=== PATIENT | female | born 1990 | race Caucasian/White ===

== ENCOUNTER → 2018-09-12 | Outpatient (REF) | payer OTHER | LOC: M LAB REF 17:25 | PROVIDERS: ATTEND Family Medicine | DX: Z01.419 Encounter for gynecological examination (general) (routine) without abnormal findings (principal) | CPT/HCPCS: 87624; G0123 ==

== ENCOUNTER 2019-04-28 14:50 | Emergency (ER) | payer OTHER ==
[~2019-04-28] VITALS: Ht 175.3 cm; Wt 102.3 kg
--- NOTE | 2019-04-28 17:02 | REP ---
FIRST TRIMESTER ULTRASOUND: Real-time sonographic evaluation of the gravid uterus performed utilizing transabdominal technique. There is a single living intrauterine gestation. The estimated gestational age is 6 weeks 4 days based on crown rump length of 7 mm, EDC 12/18/2019. heart rate 131 beats per minute. Subchorionic hemorrhage is seen 14 x 8 x 15 mm. There is a left corpus luteum 2.1 x 1.3 x 1.3 cm. Electronically Signed by Helio Lebron MD 05/01/2019 04:28 P
[2019-04-28 17:21] VITALS: BP 126/86
== END 2019-04-28 17:27 | disposition home or self-care (01) ==
LOC: M ED 14:50
DX: O20.8 Other hemorrhage in early pregnancy (principal); Z3A.01 Less than 8 weeks gestation of pregnancy; Z88.0 Allergy status to penicillin

== ENCOUNTER → 2019-04-28 | Outpatient (REF) | payer OTHER ==
[2019-04-28 14:13] LABS: AMORPHOUS SEDIMENT MODERATE (NEGATIVE); APPEARANCE, URINE CLOUDY (CLEAR); BACTERIA, URINE AUTO NEGATIVE (NEGATIVE); BILIRUBIN, URINE AUTO NEGATIVE (NEGATIVE); BLOOD, URINE BLOOD NEGATIVE (NEGATIVE); COLOR, URINE YELLOW (YELLOW); GLUCOSE, URINE (UA) AUTO NEGATIVE (NEGATIVE); KETONE, URINE AUTO NEGATIVE (NEGATIVE); LEUKOCYTE ESTERASE, URINE AUTO NEGATIVE (NEGATIVE); NITRITE, URINE AUTO NEGATIVE (NEGATIVE); PROTEIN, URINE AUTO NEGATIVE (NEGATIVE); RBC, URINE AUTO 0 /HPF (0-3); SPECIFIC GRAVITY URINE AUTO 1.016 (1.002-1.035); SQUAMOUS EPITHELIAL CELL UR AU 0 /HPF (0-6); UROBILINOGEN, URINE AUTO 0.2 mg/dL (0.0-2.0); WBC, URINE AUTO 0 /HPF (0-3)
[2019-04-28 16:01] LABS: CHLAMYDIA DNA AMPLIFICATION NEGATIVE (NEGATIVE); GC DNA AMPLIFICATION NEGATIVE (NEGATIVE)
== END ==
LOC: M LAB REF 12:42
PROVIDERS: ATTEND Family Medicine
DX: N39.0 Urinary tract infection, site not specified (principal)

== ENCOUNTER → 2019-04-28 | Outpatient (CLI) | payer OTHER | LOC: M LAB 10:32 | PROVIDERS: ATTEND Family Medicine | DX: O20.0 Threatened abortion (principal); Z3A.00 Weeks of gestation of pregnancy not specified ==

== ENCOUNTER → 2019-05-01 | Outpatient (CLI) | payer OTHER | LOC: M LAB 14:23 | PROVIDERS: ATTEND Family Medicine | DX: Z01.419 Encounter for gynecological examination (general) (routine) without abnormal findings (principal) ==

== ENCOUNTER → 2019-05-09 | Outpatient (CLI) | payer OTHER ==
[2019-05-09 16:08] LABS: BASO % 0.1 % (0.0-1.0); EOS # 0.1 10^3/uL (0.0-0.5); EOS % 1.1 % (0.0-3.0); HEMOGLOBIN 12.9 g/dl (12.0-15.5); LYMPH # 1.9 10^3/uL (1.5-5.0); LYMPH % 18.9 % (24.0-44.0); MEAN CORPUSCULAR HEMOGLOBIN 30.4 pg (27.0-33.0); MEAN CORPUSCULAR HGB CONC 33.9 g/dl (32.0-36.5); MEAN CORPUSCULAR VOLUME 89.6 fl (80.0-96.0); MONO # 0.7 10^3/uL (0.0-0.8); MONO % 6.6 % (0.0-5.0); NEUTROPHILS # 7.5 10^3/uL (1.5-8.5); PLATELET COUNT, AUTOMATED 212 10^3/uL (150-450); RED BLOOD COUNT 4.24 10^6/uL (4.00-5.40); WHITE BLOOD COUNT 10.3 10^3/uL (4.0-10.0)
[2019-05-09 17:40] LABS: CHLAMYDIA DNA AMPLIFICATION NEGATIVE (NEGATIVE); GC DNA AMPLIFICATION NEGATIVE (NEGATIVE)
[2019-05-10 09:08] LABS: HEPATITIS C VIRUS ABY INDEX 0.1 INDEX (<0.8); HIV 1&2 SCREEN CENTAUR NEGATIVE (NEGATIVE); RUBELLA IgG QUALITATIVE IMMUNE (IMMUNE)
== END ==
LOC: M LAB 15:23
PROVIDERS: ATTEND Obstetrics & Gynecology
DX: Z34.81 Encounter for supervision of other normal pregnancy, first trimester (principal); Z3A.00 Weeks of gestation of pregnancy not specified

== ENCOUNTER → 2019-07-19 | Outpatient (CLI) | payer OTHER ==
--- NOTE | 2019-07-19 19:50 | REP ---
OB ULTRASOUND: Real-time sonographic evaluation of the gravid uterus performed. There is a single living intrauterine gestation. The estimated gestational age is 18 weeks 5 days, EDC 12/15/2019. Today's measurements indicate appropriate growth. BPD 45 mm = 19 weeks 3 days, 71st percentile HC 166 mm = 19 weeks 2 days, 67th percentile AC 136 mm = 19 weeks 0 days, 57th percentile FL 29 mm = 19 weeks 0 days, 57th percentile HC/AC ratio 1.22, within normal range. Estimated weight 271 grams, 59th percentile. Cervix is closed and measures 2.8 cm in length. heart rate 147 beats per minute. SEEN/GROSSLY UNREMARKABLE Lateral ventricles yes Posterior fossa yes Upper lip no Four-chamber heart yes LVOT no RVOT no Stomach yes Cord insertion no Three vessel cord yes Kidneys yes Bladder yes Spine yes position: Breech. Placenta: Posterior and grade 0 with no previa or abruption. Amniotic fluid: Within normal limits. Electronically Signed by Helio Lebron MD 07/19/2019 08:07 P
== END ==
LOC: M RAD 15:35
PROVIDERS: ATTEND Specialist
DX: Z34.82 Encounter for supervision of other normal pregnancy, second trimester (principal); Z3A.18 18 weeks gestation of pregnancy

== ENCOUNTER → 2019-08-11 | Outpatient (CLI) | payer OTHER, SELFPAY ==
--- NOTE | 2019-08-11 18:44 | REP ---
Obstetric sonography: History: Supervision of followup anatomy. Face, outflow tracts, abdominal wall cord insertion. Comparison study July 19, 2019. Findings: Scanning through the gravid uterus demonstrates a viable single intrauterine gestation in a cephalic lie. motion is observed and heart rate is recorded at 150 beats per minute. A posterior fundal grade 1 placenta is seen without evidence of previa. Amniotic fluid is subjectively normal. Closed cervical length is measured at 3.1 cm measured transabdominally. No extrauterine abnormalities observed. There has been appropriate interval growth. The following anatomic structures were identified and felt to be unremarkable: Four-chamber heart, upper lip, bilateral is cardiac outflow tract views, and abdominal wall cord insertion. In conjunction with the prior study, anatomic survey is felt to be complete. Biometry chart: BPD 5.2 cm 21 weeks 5 days Head circumference 20.0 cm 22 weeks 1 day Abdominal circumference 18.3 cm 23 weeks 1 day Femur length 4.3 cm 24 weeks 0 days HC/AC ratio normal 1.09 cephalic index normal 0.71 estimated weight 583 grams, 1 pound 4 ounces, 91st percentile for 22 weeks 0 days. Impression: Viable single intrauterine gestation at 22 weeks 4 days by today's composite criteria. Expected gestational age estimate based on prior sonography is 22 weeks 0 days. SANDIP by prior sonography December 15, 2019. There has been appropriate interval growth.
== END ==
LOC: M WHC 13:53
PROVIDERS: ATTEND Advanced Practice Midwife
DX: O99.212 Obesity complicating pregnancy, second trimester (principal); Z3A.22 22 weeks gestation of pregnancy

== ENCOUNTER 2019-09-12 13:02 | Outpatient (CLI) | payer OTHER ==
[~2019-09-12] VITALS: Ht 172.7 cm; Wt 112.9 kg
[2019-09-12 13:28] VITALS: BP 179/86
[2019-09-12] MEDS ORDERED: PRENTAB9 PO (13:28)
[2019-09-12 13:29] VITALS: BP 148/78
[2019-09-12 13:46] VITALS: BP 143/63
== END 2019-09-12 13:50 | disposition home or self-care (01) ==
LOC: M LDO 13:02
PROVIDERS: ATTEND Obstetrics & Gynecology
DX: Z03.71 Encounter for suspected problem with amniotic cavity and membrane ruled out (principal); Z3A.00 Weeks of gestation of pregnancy not specified; Z88.0 Allergy status to penicillin
CPT/HCPCS: G0378; G0463

== ENCOUNTER 2019-09-13 09:56 | Outpatient (CLI) | payer OTHER ==
[2019-09-13] VITALS (10 sets, daily range): BP systolic 109–141; BP diastolic 62–85
[~2019-09-13] VITALS: Ht 172.7 cm; Wt 112.4 kg
[~2019-09-13 09:56] MED LIST: PRENTAB9 PO
[2019-09-13 11:25] LABS: ALT/SGPT 15 U/L (12-78); BILIRUBIN,TOTAL 0.6 MG/DL (0.2-1.0); CREATININE FOR GFR 0.63 MG/DL (0.55-1.30); GLOMERULAR FILTRATION RATE > 60.0 (>60); LDH LACTATE DEHYDROGENASE 169 U/L (84-246); URIC ACID 3.6 MG/DL (2.6-6.0)
[2019-09-13 11:46] LABS: CREATININE,RANDOM URINE < 13.0 MG/DL; TOTAL PROTEIN,RANDOM URINE < 5.0 MG/DL (0.0-12.0)
[2019-09-13 12:12] LABS: HEMATOCRIT 35.2 % (36.0-47.0); HEMOGLOBIN 11.6 g/dl (12.0-15.5); PLATELET COUNT, AUTOMATED 179 10^3/uL (150-450); RED BLOOD COUNT 3.87 10^6/uL (4.00-5.40); WHITE BLOOD COUNT 10.3 10^3/uL (4.0-10.0)
--- NOTE | 2019-09-13 12:25 | IPN ---
DATE: 09/13/2019 Malou is a 28-year-old, 1, para 0, at 26-5/7 weeks gestation with an estimated date of confinement (EDC) of 12/15/2019 based on last menstrual period and confirmed by first trimester ultrasound. She presents to labor and delivery today for a followup blood pressure check. She was seen on labor triage yesterday and noted to have three elevated blood pressures. However, labs and spot urine were unintentionally omitted from her evaluation. She does deny headache, visual disturbances, right upper quadrant pain, and epigastric pain. She denies contractions, vaginal bleeding, and leakage of fluid. The fetus has been active. Her care was initiated at [facility] in the first trimester. course has been thus far uncomplicated. OBSTETRICAL HISTORY: Primigravida. OBSTETRICAL LABS: Have all returned normal results. PAST MEDICAL HISTORY: Childhood varicell, obesity. SURGERIES: Laparoscopic surgery. FAMILY HISTORY: Diabetes. SOCIAL HISTORY: She is a nonsmoker. Denies alcohol and drug use. No history of sexually transmitted infections and denies history of abuse physical, sexual and emotional. CURRENT MEDICATIONS: - vitamins NO KNOWN DRUG ALLERGIES. OBJECTIVE: Temperature 97.7, pulse 88, respirations 16, blood pressure (BP) upon arrival is 130/82. She did have a repeat of 141/70. Following that isolated elevated blood pressure all of her blood pressures have remained normotensive. heart rate is 145. It is appropriate for gestational age. There is no pattern of contractions. Sterile vaginal exam is deferred. Labs for pre-eclamptic workup have been ordered. Her spot urine is too low to calculate. Her creatinine is 0.63, AST 10, ALT 15, LDH 169, uric acid 3.6. Her CBC is still pending. ASSESSMENT: Intrauterine at 26-5/7 weeks, heart rate appropriate for gestational age, rule out gestational hypertension/preeclampsia. PLAN: With the return of a normal CBC the patient will be discharged home. She will be seen within 2 weeks for a repeat blood pressure check. If she continues to remain normotensive, she will continue with normal antepartum surveillance. I did review access to care, signs and symptoms of active labor, movement counts and danger signs related to gestational hypertension/preeclampsia with the patient. She is agreeable with this plan and once the CBC is returned and it is normal she will be discharged home.
== END 2019-09-13 12:33 | disposition home or self-care (01) ==
LOC: M LDO 09:56
PROVIDERS: ATTEND Advanced Practice Midwife
DX: Z03.79 Encounter for other suspected maternal and fetal conditions ruled out (principal); R03.0 Elevated blood-pressure reading, without diagnosis of hypertension; Z3A.26 26 weeks gestation of pregnancy; Z88.0 Allergy status to penicillin
CPT/HCPCS: 36415; 82247; 82565; 82570; 83615; 84156; 84450; 84460; 84550; 85027; G0378; G0463

== ENCOUNTER → 2019-09-22 | Outpatient (CLI) | payer OTHER ==
[2019-09-22 11:09] LABS: HEMATOCRIT 33.9 % (36.0-47.0); HEMOGLOBIN 11.3 g/dl (12.0-15.5); MEAN CORPUSCULAR HEMOGLOBIN 30.5 pg (27.0-33.0); MEAN CORPUSCULAR HGB CONC 33.3 g/dl (32.0-36.5); MEAN CORPUSCULAR VOLUME 91.6 fl (80.0-96.0); PLATELET COUNT, AUTOMATED 177 10^3/uL (150-450)
== END ==
LOC: M PLALAB 09:07
PROVIDERS: ATTEND Advanced Practice Midwife
DX: Z34.92 Encounter for supervision of normal pregnancy, unspecified, second trimester (principal); Z3A.00 Weeks of gestation of pregnancy not specified

== ENCOUNTER → 2019-11-17 | Outpatient (REF) | payer OTHER | LOC: M SFHCWAGY 16:47 | PROVIDERS: ATTEND Obstetrics & Gynecology | DX: O99.213 Obesity complicating pregnancy, third trimester (principal) ==

== ENCOUNTER → 2019-11-27 | Outpatient (CLI) | payer OTHER ==
--- NOTE | 2019-11-28 00:56 | REP ---
OBSTETRIC SONOGRAPHY: HISTORY: Supervision of , growth and LEONARDA. Uterine size/date discrepancy in the third trimester. FINDINGS: Scanning through the gravid uterus demonstrates a single living intrauterine gestation in a cephalic lie. motion is observed, and heart rate is recorded at 152 beats per minute. A posterofundal, grade 3 placenta is seen without evidence of previa or abruption. Amniotic fluid is subjectively normal. LEONARDA is normal at 16.9 cm. Closed cervical length is obscured by low head position. No extrauterine abnormality is observed. There has been appropriate interval growth. The following anatomic structures are identified and felt to be unremarkable: cranium, face and profile, four-chamber heart, diaphragm, left-sided stomach, three-vessel cord, kidneys, and bladder. BIOMETRY CHART: BPD 9.5 cm = 38 weeks 6 days Head circumference 33.6 cm = 38 weeks 3 days Abdominal circumference 36.9 cm = 40 weeks 6 days Femur length 7.5 cm = 38 weeks 2 days Humeral length 6.9 cm = 40 weeks 0 days HC/AC ratio Normal, 0.91 Cephalic index Normal, 0.81 Estimated weight 3884 grams, 8 pounds 9 ounces, 96 percentile for 37 weeks 3 days. IMPRESSION: Viable single intrauterine gestation at 37 weeks 4 days by today's composite sonographic criteria. Expected gestational age estimate based on prior sonography is 37 weeks 3 days. SANDIP by prior sonography 12/15/2019. There has been appropriate interval growth.
== END ==
LOC: M WHC 11:28
PROVIDERS: ATTEND Advanced Practice Midwife
DX: O26.843 Uterine size-date discrepancy, third trimester (principal)

== ENCOUNTER 2019-12-08 19:25 | Inpatient (IN) | payer OTHER ==
[~2019-12-08] VITALS: Ht 172.7 cm; Wt 120.2 kg
[2019-12-08 20:17] VITALS: BP 126/75
[2019-12-08] MEDS ORDERED: LACTATED RINGER'S 1000 ML IV STA (20:19)
[2019-12-08] MEDS: miSOPROStol 50 MCG 1/2 TAB (S0191) PO SCH (20:30)
[2019-12-08 20:39] LABS: HEMOGLOBIN 12.3 g/dl (12.0-15.5); MEAN CORPUSCULAR HEMOGLOBIN 30.8 pg (27.0-33.0); MEAN CORPUSCULAR HGB CONC 34.2 g/dl (32.0-36.5); PLATELET COUNT, AUTOMATED 175 10^3/uL (150-450); WHITE BLOOD COUNT 12.6 10^3/uL (4.0-10.0)
--- NOTE | 2019-12-08 20:46 | HPEPDOC ---
Obstetrical History & Physical General Date of Admission December 08, 2019 at 19:25 History of Present Illness Chief Complaint: Induction of labor (for suspected macrosomia) Information Provided By: Patient Age: 29 : 1 Term: 0 Pre-term: 0 Abortions: 0 Livin Dating Final EDC: December 15, 2019 Final EDC by: LMP EGA at Admission: 39 Antepartum Course Height (inches): 68 Pre- weight (lbs.): 226 Admission Weight (lbs.): 266.2 Past Medical History Past Obstetrical History : Past Obstetrical History: Primgravida [employer] History: No pertinent history Past Medical History Surgical History: Other (laparoscopy) Family History Significant Family History: Diabetes, Hypertension Social History Marital Status: Family situation: Spouse/partner home Psychosocial History: No pertinent psych hx * Smoker: non-smoker Alcohol: Denies Drugs: denies Abuse Violence Screening Have you been hit/kicked/slapp: No Have you been sexually assault: No Imunizations Tdap status: current Allergies Coded Allergies: Penicillins (Verified Allergy, Severe, 04/28/19) anaph Medications Scheduled No.137/Iron/Folic Acd ( Vitamin Tablet) 1 Each Tablet, 1 TAB PO DAILY Physical Examination Physical Examination GENERAL: Alert and oriented times three. BREAST: . ABDOMEN: Gravid and non-tender to touch. FETUS: Is vertex (VTX) by sterile vaginal examination (SVE), fetus is vertex (VTX) by Anthony. EFW 9-9.5# HEART RATE: Regular rate and rhythm. LUNGS: Clear to auscultation (CTA). EXTREMITIES: No edema. No clonus. Deep tendon reflexes (DTRs) + 2. Laboratory Data 24H LABS Laboratory Tests 2 12/08/19 19:34: Serology Scanned Report Hepatitis B Testing 12/08/19 20:00: CBC/BMP Pertinent Laboratoy Data Blood Type: A+ RBC Antibody Screen: Negative HIV: Negative Hepatitis B: Negative Hepatitis C: Negative Rapid Plasma Reagin: Nonreactive Rubella: Immune Chlamydia/Gonorrhea: Negative Group B Streptococcus: Negative Glucose Tolerance Test: 93 Anatomy Ultrasound Ultrasound Date: Aug 11, 2019 Placenta Location: Posterior Normal Anatomy: Yes Placenta Previa: No Estimated Weight (grams): 583 (91%) Other Ultrasounds 05/09/19 dating 8w5d 11/27/19 growth 3884g, 8#9 96% Steroid Therapy Steroid Therapy: No Vaginal Examination Dilation: 1cm Effacement: 50% Station: -3 Cervical Consistency: Medium Cervical Position: Posterior Presentation: Cephalic presentation Assessment Heart Rate (FHR): 150 Variability: Moderate Accelerations: Positive Decelerations: None Tocometer Frequency: irregular Strength: palpated as mild Assessment/Plan Assessment Malou is a 29-year-old (G)1 para (P)0-0-0-0 at 39+0 weeks by 8-week ultrasound. Presents to Labor and Delivery (L&D) elective IOL due to suspected macrosomia. Denies LOF, bleeding, fetus is active. Plan Admit and orient per consult Dr Menjivar Nurse First Assist and consent. Diet: regular. Group B Streptococcus (GBS) negative. Labs and intravenous (IV) per unit protocol. Counseled on misoprostol, Pitocin and induction of labor (IOL). Lactated Ringers (LR): Bolus 500 mL, then saline lock. Plans to labor ad demetrius Anticipate normal spontaneous delivery (). C-S as appropriate. Ivonne Landrum CNM December 08, 2019 20:46
[2019-12-08] MEDS ORDERED: hydrOXYzine 50 MG TAB PO SCH (21:00)
[2019-12-08 21:33] VITALS: BP 136/77
[2019-12-08 23:09] VITALS: BP 129/79
[2019-12-09] VITALS (27 sets, daily range): BP systolic 108–149; BP diastolic 53–93
[2019-12-09] MEDS: miSOPROStol 50 MCG 1/2 TAB (S0191) PO SCH ×2 (00:40→09:28)
[2019-12-09] MEDS ORDERED: OXYTOCIN DRIP 30 UNITS in IV 1 EA IV SCH ×4 (14:15)
[2019-12-09] MEDS: LR 1,000 ML IV SCH (17:53)
--- NOTE | 2019-12-09 18:40 | IPNPDOC ---
Obstetrical Progress Note Date of Service December 09, 2019 Subjective Has had 4 doses of misoprostol. Currently on Pitocin. Objective Vital Signs Date Time Temp Pulse Resp B/P (MAP) Pulse Ox O2 Delivery O2 Flow Rate FiO2 12/09/19 15:01 99.1 96 18 117/60 (79) Assessment Variability: Moderate Accelerations: Positive Tocometer Contractions: Yes Frequency: regular Sterile Vaginal Examination Dilation: 1cm (Cook's catheter placed 70 mL/40 mL) Effacement (%): 50% Station: -2 Cervical Consistency: Soft Cervical Position: Middle Postion/Presentation: Cephalic presentation Assessment and Plan Age: 29 : 1 Status: Reassuring Anticipate: Vaginal Delivery FRANCESCA KUMARI MD. December 09, 2019 18:40
[2019-12-09] MEDS ORDERED: BUTORPHANOL 2 MG/ML INJ (J0595) IV ONE (19:15)
[2019-12-09] MEDS ORDERED: PROMETHAZINE INJ 25 MG/ML VIAL (J2550) IV PRN (19:15)
[2019-12-10] VITALS (33 sets, daily range): BP systolic 107–163; BP diastolic 56–84
[2019-12-10] MEDS ORDERED: FENTANYL 2MCG/ML ROPIVACAINE 0.2% IN 0.9% NACL 100ML IVBAG As Ordered ONE (02:26)
--- NOTE | 2019-12-10 03:50 | IPNPDOC ---
Obstetrical Progress Note Date of Service December 10, 2019 Subjective 21-year-old 1, undergoing induction of labor. Comfortable now following epidural. heart rate tracing category 1. Regular pattern. Contractions of Pitocin. Cervical exam she is 4-5 cm dilated, 90% efface, -2 station. There is a AROM performed, productive, clear fluid Objective Vital Signs Date Time Temp Pulse Resp B/P (MAP) Pulse Ox O2 Delivery O2 Flow Rate FiO2 12/09/19 22:30 94 143/67 (92) 12/09/19 19:47 18 12/09/19 15:01 99.1 Assessment Variability: Moderate Heart Rate Tracing: Category I Tocometer Contractions: Yes Frequency: regular Sterile Vaginal Examination Dilation: 5 cm Effacement (%): 90% Station: -2 Cervical Consistency: Soft Cervical Position: Anterior Assessment and Plan Age: 29 : 1 Status: Reassuring Anticipate: Vaginal Delivery FRANCESCA KUMARI MD. December 10, 2019 03:50
[2019-12-10] MEDS ORDERED: EPIDURAL/PCA KEYS XX PRN (04:00)
[2019-12-10] MEDS ORDERED: REFRIGERATOR IV KEYS XX PRN (04:00)
[2019-12-10] MEDS ORDERED: ePHEDrine SULFATE 25 MG/5 ML(5MG/ML) SYRINGE IV PRN (04:00)
[2019-12-10] MEDS ORDERED: NALOXONE INJ 0.4MG/1ML VIAL (J2310 PER 1MG) IV PRN (04:00)
[2019-12-10] MEDS ORDERED: FENTANYL/ROPIVACAINE/NACL BAG 100 ML EPIDURAL SCH (04:00)
[2019-12-10] MEDS ORDERED: diphenhydrAMINE 50MG/ML VIAL (J1200) IV PRN (04:00)
[2019-12-10] MEDS ORDERED: ONDANSETRON 4MG/2ML VIAL IV PRN (04:00)
[2019-12-10] MEDS ORDERED: EPIDURAL COMMENT XX SCH (04:00)
[2019-12-10] MEDS ORDERED: LACTATED RINGER'S 1000 ML IV PRN (04:00)
[2019-12-10] MEDS: LR 1,000 ML IV SCH (06:21)
--- NOTE | 2019-12-10 09:54 | DNPDOC ---
[facility] Delivery Note Delivery Note DATE OF DELIVERY: 12/10/2019 TIME OF : 09 GENDER:, Female. APGARS: 8 and 9. WEIGHT:, 4200 grams or 9 pounds 4 ounces. LACERATIONS:. Second-degree midline laceration ANESTHESIA: Epidural. ESTIMATED BLOOD LOSS: 300ml COUNTS: 5 laparotomy sponges accounted for prior to after delivery. One sharps removed delivery field. DELIVERY NOTE:. 12/10/2019 at 0 921, had a spontaneous vaginal delivery of viable female , Apgars 8 and 9, and weight was, 4200 grams or 9 pounds 4 ounces. Head was delivered [occiput anterior (OA), followed by delivery of the shoulders and corpus. Infant was handed to mom with a good cry. Cord was clamped times two and was cut by the father of baby under my direction. Placenta was then drained and delivered grossly intact. A premixed bag of 500 mL of normal saline with 30 units of Pitocin was then bolused along with uterine massage until the uterus was firm. On inspection,. There was a first-degree midline laceration which was repaired with 3-0 Vicryl. On reinspection, cervix, vagina, perineum was grossly intact and hemostatic. Mom and baby in recovery on stable condition. The couples decided to remain in daughter FRANCESCA Ramirez MD. December 10, 2019 09:54
[2019-12-10] MEDS ORDERED: ACETAMINOPHEN 500 MG TAB PO PRN (10:00)
[2019-12-10] MEDS ORDERED: IBUPROFEN 600 MG TAB PO PRN (10:00)
[2019-12-10] MEDS ORDERED: DOCUSATE SODIUM 100 MG CAP PO PRN (10:00)
[2019-12-10] MEDS ORDERED: DIBUCAINE 1% OINTMENT 30GM TOP PRN (10:00)
[2019-12-10] MEDS ORDERED: RHOGAM 300 MCG (1500 IU) INJ (J2790) IM SCH (10:00)
[2019-12-10] MEDS ORDERED: ACETAMINOPHEN TAB 650MG DOSE (2X325MG) PO PRN (10:00)
[2019-12-10] MEDS ORDERED: METHYLERGONOVINE MALEATE 0.2 MG TAB PO PRN (10:00)
[2019-12-10] MEDS ORDERED: ANUSOL HC CREAM 30GM TOP PRN (10:00)
[2019-12-10] MEDS ORDERED: MEASLES,MUMPS,RUBELLA VACCINE INJ (MMR-II) (90707) SC SCH (10:00)
[2019-12-10] MEDS ORDERED: MOM 30ML SUSPENSION UDC PO PRN (10:00)
[2019-12-10] MEDS ORDERED: OXYTOCIN DRIP 30 UNITS in IV 1 EA IV SCH (10:15)
[2019-12-11 06:08] VITALS: BP 132/82
[2019-12-11] MEDS: IBUPROFEN 800 MG TAB PO PRN ×2 (06:17→16:28)
--- NOTE | 2019-12-11 07:52 | IPNPDOC ---
Progress Note Date of Service: December 11, 2019 Day#: 1 Progress Note SUBJECT: Doing well without complaints. Ambulating, voiding and pain is well-c ontrolled. Reports minimal lochia. +breast feeding OBJECTIVE: VITAL SIGNS: Within normal limits, afebrile. Alert and oriented times three. Abdomen: Fundus firm at U-2. Soft, NTTP. Ext: neg calf tenderness. ASSESSMENT: day #1 status post normal spontaneous vaginal delivery. Recovering in stable condition. PLAN: 1. Continue routine care 2. Discharge plans for tomorrow VS, I&O, 24H, Fishbone Vital Signs/I&O Vital Signs Date Time Temp Pulse Resp B/P (MAP) Pulse Ox O2 Delivery O2 Flow Rate FiO2 12/11/19 06:08 97.3 97 16 132/82 (99) I&O- Last 24 Hours up to 6 AM 12/11/19 06:00 Intake Total 3063 ml Output Total 1425 ml Balance 1638 ml FRANCESCA KUMARI MD. December 11, 2019 07:52
[2019-12-11] MEDS: PRENATAL VITAMINS CHEWABLE TABLET PO SCH (08:43)
[2019-12-11 08:45] VITALS: BP 132/82
[2019-12-11 17:35] VITALS: BP 148/83
[2019-12-12 06:00] VITALS: BP 141/85
[2019-12-12 08:54] VITALS: BP 141/85
[2019-12-12] MEDS: PRENATAL VITAMINS CHEWABLE TABLET PO SCH (09:07)
[2019-12-12 10:03] VITALS: BP 134/88
[2019-12-12 10:20] LABS: HEMATOCRIT 33.9 % (36.0-47.0); HEMOGLOBIN 11.5 g/dl (12.0-15.5); MEAN CORPUSCULAR HEMOGLOBIN 31.2 pg (27.0-33.0); MEAN CORPUSCULAR HGB CONC 33.9 g/dl (32.0-36.5); MEAN CORPUSCULAR VOLUME 91.9 fl (80.0-96.0); PLATELET COUNT, AUTOMATED 155 10^3/uL (150-450); RED BLOOD COUNT 3.69 10^6/uL (4.00-5.40); WHITE BLOOD COUNT 11.1 10^3/uL (4.0-10.0)
[2019-12-12 10:55] LABS: ALBUMIN 2.5 GM/DL (3.2-5.2); ALT/SGPT 34 U/L (12-78); BILIRUBIN,TOTAL 0.4 MG/DL (0.2-1.0); BLOOD UREA NITROGEN 8 MG/DL (7-18); CALCIUM LEVEL 8.7 MG/DL (8.5-10.1); CARBON DIOXIDE LEVEL 28 MEQ/L (21-32); CHLORIDE LEVEL 107 MEQ/L (98-107); CREATININE FOR GFR 0.66 MG/DL (0.55-1.30); GLOMERULAR FILTRATION RATE > 60.0 (>60); GLUCOSE, FASTING 88 MG/DL (70-100); LDH LACTATE DEHYDROGENASE 248 U/L (84-246); POTASSIUM SERUM 3.8 MEQ/L (3.5-5.1); SODIUM LEVEL 140 MEQ/L (136-145); TOTAL PROTEIN 6.1 GM/DL (6.4-8.2); URIC ACID 4.6 MG/DL (2.6-6.0)
[2019-12-12 11:19] LABS: CREATININE,RANDOM URINE 36.4 MG/DL; TOTAL PROTEIN,RANDOM URINE 11.1 MG/DL (0.0-12.0)
== END 2019-12-12 13:40 | disposition home or self-care (01) | DRG 560 ==
LOC: M LDI 19:25 → M OBS 12-10 12:19
PROVIDERS: ADMIT Advanced Practice Midwife; ATTEND Advanced Practice Midwife
DX: O70.0 First degree perineal laceration during delivery (principal); O36.60X0 Maternal care for excessive fetal growth, unspecified trimester, not applicable or unspecified; Z37.0 Single live birth; Z3A.39 39 weeks gestation of pregnancy

== ENCOUNTER → 2020-12-25 | Outpatient (REF) | payer OTHER | LOC: M SFHCWAGY 17:23 | PROVIDERS: ATTEND Obstetrics & Gynecology | DX: Z12.4 Encounter for screening for malignant neoplasm of cervix (principal); Z77.9 Other contact with and (suspected) exposures hazardous to health ==

== ENCOUNTER → 2023-02-08 | Outpatient (CLI) | payer OTHER | LOC: M WHC 09:07 | PROVIDERS: ATTEND Obstetrics & Gynecology | DX: N84.0 Polyp of corpus uteri (principal) ==

== ENCOUNTER 2023-09-09 10:18 | Emergency (ER) | payer OTHER ==
[~2023-09-09] VITALS: Ht 175.3 cm; Wt 110.0 kg
[2023-09-09] MEDS ORDERED: EXCETAB32 PO (10:30)
[2023-09-09 12:36] LABS: BASO % 0.2 % (0.0-1.0); EOS # 0.1 10^3/uL (0.0-0.5); EOS % 1.2 % (0.0-3.0); HEMATOCRIT 41.3 % (36.0-47.0); HEMOGLOBIN 14.4 g/dl (12.0-15.5); LYMPH % 23.4 % (24.0-44.0); MEAN CORPUSCULAR HEMOGLOBIN 30.8 pg (27.0-33.0); MEAN CORPUSCULAR HGB CONC 34.9 g/dl (32.0-36.5); MEAN CORPUSCULAR VOLUME 88.4 fl (80.0-96.0); MONO # 0.5 10^3/uL (0.0-0.8); MONO % 5.9 % (2.0-8.0); NEUTROPHILS # 5.9 10^3/uL (1.5-8.5); NEUTROPHILS % 69.2 % (36.0-66.0); PLATELET COUNT, AUTOMATED 193 10^3/uL (150-450); RED BLOOD COUNT 4.67 10^6/uL (4.00-5.40); WHITE BLOOD COUNT 8.5 10^3/uL (4.0-10.0)
[2023-09-09 12:52] LABS: ERYTHROCYTE SEDIMENTATION RATE 21 mm/hr (0-20)
[2023-09-09 13:06] LABS: CK-MB VALUE MASS < 1.0 NG/ML (<3.6)
[2023-09-09 13:09] LABS: C REACTIVE PROTEIN QUANTITATIV < 0.40 MG/DL (<1.0)
[2023-09-09 13:10] LABS: THYROID STIMULATING HORMONE 1.835 uIU/ML (0.55-4.78)
[2023-09-09 13:11] LABS: CPK CREATINE PHOSPHOKINASE 111 U/L (34-145)
[2023-09-09 13:13] LABS: FREE T4 1.16 NG/DL (0.89-1.76)
[2023-09-09 14:35] LABS: RSV AMPLIFICATION NEGATIVE (NEGATIVE)
[2023-09-09 15:22] LABS: AMPHETAMINES LEVEL URINE NEGATIVE (NEGATIVE); BARBITURATES URINE NEGATIVE (NEGATIVE); BENZODIAZEPINES URINE NEGATIVE (NEGATIVE); CANNABINOIDS URINE NEGATIVE (NEGATIVE); COCAINE METABOLITE URINE NEGATIVE (NEGATIVE); METHADONE URINE NEGATIVE (NEGATIVE); OPIATES URINE NEGATIVE (NEGATIVE); PHENCYCLIDINE URINE NEGATIVE (NEGATIVE)
[2023-09-09] MEDS ORDERED: HOLTER MONITOR XX (16:56)
[2023-09-09 17:00] VITALS: BP 113/55
[2023-09-09 17:03] VITALS: TEMP 98.4; O2SAT 100
== END 2023-09-09 17:15 | disposition home or self-care (01) ==
LOC: M ED 10:18
DX: R00.2 Palpitations (principal); I49.3 Ventricular premature depolarization; I45.81 Long QT syndrome; F10.10 Alcohol abuse, uncomplicated; Z88.0 Allergy status to penicillin; Z79.82 Long term (current) use of aspirin

== ENCOUNTER → 2023-09-10 | Outpatient (CLI) | payer OTHER ==
[~2023-09-10] MED LIST changes: +EXCETAB32 PO; +HOLTER MONITOR XX
== END ==
LOC: M EKG 16:02
PROVIDERS: ATTEND Physician Assistant Medical
DX: R00.2 Palpitations (principal)

== ENCOUNTER → 2023-11-16 | Outpatient (CLI) | payer OTHER | LOC: M RAD 14:22 | PROVIDERS: ATTEND Obstetrics & Gynecology | DX: Z30.431 Encounter for routine checking of intrauterine contraceptive device (principal) ==

== ENCOUNTER 2024-10-26 16:10 | Emergency (ER) | payer OTHER ==
[~2024-10-26] VITALS: Ht 175.3 cm; Wt 104.9 kg
[2024-10-26] MEDS ORDERED: IBUP-1022 PO (16:16)
[2024-10-26 17:10] LABS: BASO % 0.2 % (0.0-1.0); EOS # 0.2 10^3/uL (0.0-0.5); HEMATOCRIT 39.9 % (36.0-47.0); HEMOGLOBIN 13.6 g/dl (12.0-15.5); LYMPH # 2.2 10^3/uL (1.5-5.0); LYMPH % 19.9 % (24.0-44.0); MEAN CORPUSCULAR HEMOGLOBIN 30.2 pg (27.0-33.0); MEAN CORPUSCULAR HGB CONC 34.1 g/dl (32.0-36.5); MEAN CORPUSCULAR VOLUME 88.5 fl (80.0-96.0); MONO # 0.7 10^3/uL (0.0-0.8); MONO % 6.2 % (2.0-8.0); NEUTROPHILS % 71.3 % (36.0-66.0); PLATELET COUNT, AUTOMATED 184 10^3/uL (150-450); RED BLOOD COUNT 4.51 10^6/uL (4.00-5.40); WHITE BLOOD COUNT 11.1 10^3/uL (4.0-10.0)
[2024-10-26 17:15] LABS: ERYTHROCYTE SEDIMENTATION RATE 14 mm/hr (0-20)
[2024-10-26 17:38] LABS: BLOOD UREA NITROGEN 14 MG/DL (9-23); C REACTIVE PROTEIN QUANTITATIV 0.82 MG/DL (<1.0); CALCIUM LEVEL 8.9 MG/DL (8.5-10.1); CARBON DIOXIDE LEVEL 26 MMOL/L (20-31); CHLORIDE LEVEL 107 MMOL/L (98-107); CREATININE FOR GFR 0.73 MG/DL (0.55-1.30); GLOMERULAR FILTRATION RATE > 60.0 (>60); GLUCOSE, FASTING 109 MG/DL (60-100); SODIUM LEVEL 141 MMOL/L (136-145)
[2024-10-26 18:24] LABS: HCG, SERUM QUALITATIVE NEGATIVE (NEGATIVE)
[2024-10-26] MEDS: CLINDAMYCIN 900 MG in IV 1 EA IV ONE (19:24)
[2024-10-26] MEDS ORDERED: CLEO300C2 PO (19:38)
[2024-10-26 19:54] VITALS: BP 131/85; TEMP 98.1; O2SAT 98
== END 2024-10-26 20:40 | disposition home or self-care (01) ==
LOC: M ED 16:10
DX: J02.9 Acute pharyngitis, unspecified (principal); Z88.0 Allergy status to penicillin; Z79.1 Long term (current) use of non-steroidal anti-inflammatories (NSAID); Z79.899 Other long term (current) drug therapy
CPT/HCPCS: 80048; 84703; 85025; 85652; 86140; 87880; 96374; 96375; 99284; J0737; J1100